=== PATIENT | male | born 1980 | race Caucasian/White ===

== ENCOUNTER 2016-11-20 14:10 | Emergency (ER) | payer OTHER ==
[2016-11-20 16:08] LABS: HEMOGLOBIN 15.6 gm/dl (14.0-17.5); RED BLOOD COUNT 5.17 M/UL (4.20-5.50); WHITE BLOOD COUNT 6.8 K/UL (4.5-11.0)
[2016-11-20 16:25] LABS: BUN/CREATININE RATIO 12 (0-10)
== END 2016-11-20 17:20 | disposition home or self-care (01) ==
LOC: ER1 14:10
PROVIDERS: Physician Assistant Medical
DX: M79.672 Pain in left foot (principal); R94.5 Abnormal results of liver function studies; Z88.0 Allergy status to penicillin
CPT/HCPCS: 36415; 73610; 73630; 80053; 84550; 85025; 99283